=== PATIENT | female | born 1945 | race Caucasian/White ===

== ENCOUNTER 2023-12-30 13:01 | Outpatient (CLI) | payer MEDICARE | END 2023-12-30 13:02 | disposition home or self-care (01) | LOC: CSHWCC 13:01 | PROVIDERS: ATTEND Nurse Practitioner Family | DX: S40.811D Abrasion of right upper arm, subsequent encounter (principal); S80.812D Abrasion, left lower leg, subsequent encounter | CPT/HCPCS: 11042; 11045; 87070; 87077; 87205; 99213; G0463 ==